=== PATIENT | female | born 1990 | race Two or more races ===

== ENCOUNTER 2017-01-04 15:26 | Emergency (ER) | payer OTHER ==
[2017-01-04 17:22] VITALS: BP 110/64
== END 2017-01-04 17:22 | disposition home or self-care (01) ==
LOC: ED 15:26
DX: L02.411 Cutaneous abscess of right axilla (principal)
CPT/HCPCS: J2001

== ENCOUNTER 2017-01-06 19:13 | Emergency (ER) | payer OTHER ==
[2017-01-07 02:48] VITALS: BP 106/64
== END 2017-01-07 02:48 | disposition home or self-care (01) ==
LOC: ED 19:13
DX: L02.411 Cutaneous abscess of right axilla (principal)
CPT/HCPCS: J2001

== ENCOUNTER 2017-01-13 15:45 | Emergency (ER) | payer OTHER ==
[~2017-01-13] VITALS: Ht 170.2 cm; Wt 87.1 kg
[2017-01-13 15:57] VITALS: BP 103/65
== END 2017-01-13 16:49 | disposition home or self-care (01) ==
LOC: ED 15:45
DX: Z48.01 Encounter for change or removal of surgical wound dressing (principal)

== ENCOUNTER → 2017-04-28 | Outpatient (CLI) | payer OTHER ==
[2017-04-28 09:19] LABS: BASOPHIL % 0.4 % (0-2); PLATELET COUNT 242 x10^3mcL (130-400); RED CELL DISTRIBUTION WIDTH 14.3 % (11.5-14.5)
[2017-04-28 09:47] LABS: ALBUMIN 3.6 g/dL (3.4-5.0); ALKALINE PHOSPHATASE 62 U/L (46-116); BILIRUBIN TOTAL 1.03 mg/dL (0.20-1.00); CALCIUM 8.8 mg/dL (8.5-10.1); CARBON DIOXIDE 26.9 mmol/L (21-32); CHLORIDE SERUM 107 mmol/L (98-107); CHOLESTEROL 139 mg/dL (<200); CHOLESTEROL/HDL RATIO 2.8; CREATININE SERUM 0.7 mg/dL (0.6-1.0); GFR1 > 60 mL/min; GLUCOSE SERUM 100 mg/dL (74-106); HDL CHOLESTEROL 49 mg/dL (40-60); POTASSIUM SERUM 4.8 mmol/L (3.5-5.1); SODIUM SERUM 139 mmol/L (136-145); TOTAL PROTEIN, SERUM 7.8 g/dL (6.4-8.2); TRIGLYCERIDES 64 mg/dL (<150)
[2017-04-28 09:52] LABS: FREE T4 0.94 ng/dL (0.76-1.46); FREE THYROXINE INDEX 2.3 ug/dL (1.4-4.5); T4(THYROXINE) 6.7 ug/dL (4.7-13.3)
[2017-04-28 09:55] LABS: ALT/SGPT 15 U/L (14-59); AST/SGOT 12 U/L (15-37)
[2017-04-28 11:30] LABS: T3 TOTAL 0.81 ng/mL
== END | disposition home or self-care (01) ==
LOC: LB 08:33
PROVIDERS: Family Medicine
DX: N64.52 Nipple discharge (principal)
CPT/HCPCS: 82672; 84439

== ENCOUNTER → 2017-09-20 | Outpatient (CLI) | payer OTHER | END | disposition home or self-care (01) | LOC: US 13:14 | PROC: BH4CZZZ Ultrasonography of Head and Neck (ICD-10-PCS; principal; 2017-09-20) | DX: L02.439 Carbuncle of limb, unspecified (principal); N64.52 Nipple discharge | CPT/HCPCS: 76641 ==

== ENCOUNTER → 2019-09-07 | Outpatient (CLI) | payer OTHER ==
[2019-09-07 10:55] LABS: BASOPHIL % 0.3 % (0-2); PLATELET COUNT 256 x10^3mcL (130-400); RED CELL DISTRIBUTION WIDTH 14.1 % (11.5-14.5)
[2019-09-07 13:06] LABS: ALBUMIN 3.7 g/dL (3.4-5.0); ALKALINE PHOSPHATASE 50 U/L (46-116); ALT/SGPT 38 U/L (14-59); AST/SGOT 27 U/L (15-37); BILIRUBIN TOTAL 0.6 mg/dL (0.20-1.00); CALCIUM 8.6 mg/dL (8.5-10.1); CARBON DIOXIDE 21.6 mmol/L (21-32); CHLORIDE SERUM 105 mmol/L (98-107); CHOLESTEROL 187 mg/dL (<200); CHOLESTEROL/HDL RATIO 4.6; CREATININE SERUM 0.7 mg/dL (0.6-1.0); GFR1 > 60 mL/min; GLUCOSE SERUM 94 mg/dL (74-106); HDL CHOLESTEROL 41 mg/dL (40-60); POTASSIUM SERUM 3.8 mmol/L (3.5-5.1); SODIUM SERUM 142 mmol/L (136-145); TOTAL PROTEIN, SERUM 7.9 g/dL (6.4-8.2); TRIGLYCERIDES 95 mg/dL (<150)
== END | disposition home or self-care (01) ==
LOC: LB 09:45
DX: R10.9 Unspecified abdominal pain (principal)

== ENCOUNTER → 2019-09-10 | Outpatient (CLI) | payer OTHER | END | disposition home or self-care (01) | LOC: US 09:15 | PROC: BH42ZZZ Ultrasonography of Bilateral Breasts (ICD-10-PCS; principal; 2019-09-10) | DX: N64.4 Mastodynia (principal) | CPT/HCPCS: 76641 ==